=== PATIENT | female | born 2000 | race Caucasian/White ===

== ENCOUNTER 2023-07-03 06:00 | Inpatient (IN) | payer BC, OTHER ==
[2023-07-03] MEDS ORDERED: miSOPROStoL 200 MCG TAB PO PRN (06:05)
[2023-07-03] MEDS ORDERED: TERBUTALINE 1 MG/ML VIAL SQ PRN (06:05)
[2023-07-03] MEDS ORDERED: LIDOCAINE 0.5% (PF) 5 MG/ML (50 ML SDV) SQ PRN (06:05)
[2023-07-03] MEDS ORDERED: OXYTOCIN 10 UNIT/ML 1 ML VIAL IM PRN (06:05)
[2023-07-03] MEDS ORDERED: CARBOPROST TROMETHAMINE 250 MCG/ML 1 ML AMP IM PRN (06:05)
[2023-07-03] MEDS ORDERED: METHYLERGONOVINE 0.2 MG/ML 1 ML AMP IM PRN (06:05)
[2023-07-03] MEDS ORDERED: TRANEXAMIC 1,000 MG/100ML-NACL 1,000 MG in EMPTY BAG 1 BAG IV PRN (06:05)
[2023-07-03] MEDS ORDERED: OXYTOCIN 30 UNITS/500 ML NS 30 UNIT in SALINE 1 500ML.BAG IV SCH (06:15)
[2023-07-03] MEDS ORDERED: LACTATED RINGERS 1,000 ML IV SCH (06:15)
[2023-07-03] MEDS: LACTATED RINGERS 1,000 ML IV SCH ×3 (06:25→20:06)
[2023-07-03 06:27] LABS: Glucose,Whole Blood 113 mg/dL (70-110)
[2023-07-03 06:39] LABS: HGB 13.5 gm/dL (11.4-16.0); MCH 31.8 pg (25.0-35.0); MCHC 34.6 g/dL (31.0-37.0); Mean Platelet Volume 9.2; Platelet Count 180 k/uL (150-450); RBC 4.24 m/uL (3.80-5.40); RDW 12.6 % (11.5-15.5); WBC 11.1 k/uL (3.8-10.6)
[2023-07-03] MEDS ORDERED: NALBUPHINE 10 MG/ML (10 ML MDV) IV PRN (09:17)
--- NOTE | 2023-07-03 09:25 | P.HPOB ---
History of Present Illness H&P Date: 07/03/23 Chief Complaint: Medical induction of labor Ms. Helms is a 23 year old at 39 weeks and 1 day with EDC of 07/09/2023 (by 8 week ultrasound) who presents to labor and delivery for medical induction of labor for A2GDM. Maternal medicine has been following her daily blood glucose levels and has her on a regimen of 10 units of Novolin N qAM and 28 units Novolin N qHS. On recent growth ultrasound at 32 weeks the fetus measured in the 63%ile for gestational age. Maternal work-up: blood type A positive, antibody screen negative, rubella immune, VDRL non-reactive, HBsAg negative, HIV negative, gonorrhea negative, chlamydia negative, GBS negative, 1 hour GTT >200. TDap administered on 04/18/2023. Past medical history: Polycystic ovarian syndrome Past surgical history: Denies Past Medical History Past Medical History: No Reported History History of Any Multi-Drug Resistant Organisms: None Reported Past Surgical History: No Surgical Hx Reported Past Anesthesia/Blood Transfusion Reactions: No Reported Reaction Past Psychological History: No Psychological Hx Reported Smoking Status: Never smoker Past Drug Use History: None Reported - Past Family History Mother Family Medical History: No Reported History Medications and Allergies Home Medications Medication Instructions Recorded Confirmed Type Insulin NPH Human Isophane 30 units IM ONCE 07/03/23 07/03/23 History [Novolin N] Vit No.179/Iron/Folic 1 tab PO ONCE 07/03/23 07/03/23 History [ Tablet] Allergies Allergy/AdvReac Type Severity Reaction Status Date / Time No Known Allergies Allergy Verified 07/03/23 06:02 Exam Vital Signs Temp Pulse Resp BP 07/03/23 06:01 97.1 F L 90 17 145/86 Intake and Output 07/02/23 07/03/23 07/03/23 22:59 06:59 14:59 Other: Weight 117.934 kg Focused physical exam is performed. This is an obese in no apparent distress. Breathing is non-labored. Abdomen is gravid and non-tender. Cervical exam is closed, long, and high. Cooks catheter is placed with 60cc in each balloon. Extremities are non-tender and non-edematous. heart tones are reactive and reassuring on NST. Tocometer is not graphing any contractions. Results Result Diagrams: 07/03/23 06:24 Abnormal Lab Results - Last 24 Hours (Table) 07/03/23 07/03/23 Range/Units 06:24 06:24 WBC 11.1 H (3.8-10.6) k/uL POC Glucose (mg/dL) 113 H (70-110) mg/dL Assessment and Plan Assessment: 23 year old at 39 weeks and 1 day presenting for medical induction of labor for A2GDM on insulin Plan: Admit, blood glucose levels q4 in latent labor and q2 in active labor, IV nubain prn, mIVF, NPO, continuous EFM and toco. Close monitoring of patient.
[2023-07-03 09:30] LABS: Lymphocytes # (M) 1.89 k/uL (1.0-4.8); Neutrophils # (M) 8.21 k/uL (1.3-7.7); Neutrophils % (M) 74 %; Nucleated Red Blood Cells 0 /100 WBC (0-0); Total Cells Counted 100
[2023-07-03 10:09] LABS: Glucose,Whole Blood 101 mg/dL (70-110)
[2023-07-03 15:27] LABS: Glucose,Whole Blood 95 mg/dL (70-110)
[2023-07-03 18:39] LABS: Glucose,Whole Blood 89 mg/dL (70-110)
[2023-07-03 21:21] LABS: Glucose,Whole Blood 85 mg/dL (70-110)
[2023-07-04 01:20] LABS: Glucose,Whole Blood 94 mg/dL (70-110)
[2023-07-04] MEDS ORDERED: SODIUM CHLORIDE 0.9% 250 ML BAG ONE (01:34)
[2023-07-04] MEDS ORDERED: fentaNYL (PF) 50 MCG/ML 5 ML AMP ONE (01:34)
[2023-07-04] MEDS ORDERED: ROPIVACAINE 5 MG/ML 30 ML VIAL ONE (01:34)
[2023-07-04] MEDS: LACTATED RINGERS 1,000 ML IV SCH ×4 (02:23→18:30)
[2023-07-04 04:19] LABS: Glucose,Whole Blood 101 mg/dL (70-110)
[2023-07-04] MEDS ORDERED: CITRIC ACID-SODIUM CITRATE 15 ML CUP PO ONE (04:20)
[2023-07-04] MEDS ORDERED: AZITHROMYCIN 500 MG in SODIUM CHLORIDE 0.9% 250 ML IVPB STA (04:22)
[2023-07-04] MEDS ORDERED: ONDANSETRON 4 MG/2 ML VIAL ONE (04:54)
[2023-07-04] MEDS ORDERED: fentaNYL (PF) 50 MCG/ML 2 ML AMP ONE (04:54)
[2023-07-04] MEDS ORDERED: LIDOCAINE 2% INJ 20 MG/ML (2 ML VIAL) ONE (04:54)
[2023-07-04] MEDS ORDERED: OXYTOCIN 30 UNITS/500 ML NS BAG IV ONE (04:54)
[2023-07-04] MEDS ORDERED: MORPHINE SULFATE (PF) 0.3 MG/0.3 ML SYR ONE (04:54)
--- NOTE | 2023-07-04 05:58 | P.OP ---
Date of Procedure: 07/04/23 Preoperative Diagnosis: 1. Term IUP at 39 weeks and 2 days 2. Failure to progress 3. Persistent Category II Heart Tones Remote from Delivery 4. Gestational Diabetes on Insulin Postoperative Diagnosis: Same Procedure(s) Performed: Primary Lower Transverse Section Implants: None Anesthesia: epidural Surgeon: Jo Arana Vocational Rehabilitation Technician #1: Ayesha Harp Estimated Blood Loss (ml): 420 IV fluids (ml): 500 Urine output (ml): 200 (dark yellow) Pathology: none sent Condition: stable Indications for Procedure: This is a 23 year old at 39 weeks and 2 days being medically induced for gestational diabetes on insulin. She was followed by maternal medicine this , who had her on a regimen of 10 units of Novolin N qAM and 28 units of Novolin N qHS. The patient had been ruptured for approximately 12 hours with no cervical dilation after removal of cooks catheter despite AROM and pitocin per protocol. After the patient received an epidural, the fetus began to have repetitive late decelerations. Category II FHT managed following algorithm including initiation of position changes and fluid boluses. With the persistent presence of intermittent late decelerations, a patient-centered huddle was held and the need for an expedited deliver was discussed with the patient. It is our clinical recommendation to proceed with the delivery and after questions were answered to the patient agrees to proceed with the recommended plan. The risks, benefits, and alternatives to section were discussed with the patient including risk of bleeding, infection, damage to surrounding structures including bladder/bowels/ureters, and post-operative VTE. The patient understands these risks and desires to proceed with section. Operative Findings: Viable male infant with apgars of 9/9 at 1 and 5 minutes respectively. weighed 8 pounds and 8 ounces (3850 grams). Colorless amniotic fluid noted. Normal uterus, bilateral fallopian tubes and ovaries. Description of Procedure: The patient was taken to the operating room where spinal anesthesia was found to be adequate. 2 grams of Ancef and 500mg of Azithromycin were given for infection prophylaxis. Vaginal prep was performed prior to the surgery. She was prepared and draped in the dorsal supine position with a leftward tilt. A Pfannenstiel skin incision was made with the scalpel. The incision was carried down to the fascia. The fascia was incised and extended laterally with Loja scissors. The superior aspect of the fascia was grasped with Charbel clamps. The underlying rectus muscle was dissected off sharply with Loja scissors. In a similar fashion, the inferior aspect of the fascia was elevated with Charbel clamps and the rectus muscle and pyramidalis were dissected off. Excellent hemostasis was achieved with the bovie. The rectus muscle was in the midline down to the level of the pubic symphysis. Pre-peritoneal fatty tissue was bluntly dissected to expose the peritoneum. The peritoneum was found to be free of adherent bowel and entered sharply with Loja scissors. The peritoneal incision was extended superiorly and inferiorly to the bladder reflection with good visualization of the bladder. The bladder blade was inserted and vesicouterine peritoneum was identified. Intraabdominal survey revealed scant, clear peritonea l fluid and the thinned-out lower uterine segment. The vesicouterine peritoneum was opened with scissors and the bladder flap was developed. The bladder blade was repositioned to keep the bladder out of the operative field. The lower uterine segment was incised with a scalpel. Clear amniotic fluid was noted. The uterine incision was extended bluntly with lateral and upward traction. The fetus was in left occiput transverse position. The head was elevated out of the pelvis with special attention paid to avoid using the uterine incision as a fulcrum. Gentle fundal pressure was applied once the head was brought into the incision. The infant was delivered with no difficulty. The mouth and nose were suctioned with a bulb. The cord was clamped and cut. was noted to be spontaneously crying. The infant was handed off to the internal sales engineer. IV oxytocin was initiated to facilitate uterine contractions. The placenta was delivered intact with manual massage of uterine fundus. The uterus was then exteriorized and the inside of the uterus was gently wiped with a lap sponge to assure complete removal of placental membranes. The uterine incision was closed with a 0-Vicryl suture in a running locked fashion. A second imbricating layer of 0- Vicryl was placed along the incision. Additional figure of eight sutures with 0- Vicryl were placed along the incision for hemostasis. The ovaries and tubes were found to be normal. The uterus, tubes, and ovaries were then gently returned to the abdominal cavity. The blood clots and fluid were wiped out of the abdomen and pelvis with moist laparotomy sponges. The pelvis was copiously suction irrigated.The uterine incision was reinspected and excellent hemostasis was noted. The fascial layer was closed with a 0-Vicryl suture. The subcutaneous tissue was reapproximated with 2-0 Plain Gut. The skin was closed with dl. The patient tolerated the procedure well. All the counts were correct times two. The patient was taken to the recovery room in a stable condition.
[2023-07-04] MEDS ORDERED: ONDANSETRON 4 MG/2 ML VIAL IVP PRN (06:41)
[2023-07-04] MEDS ORDERED: NALBUPHINE 10 MG/ML (10 ML MDV) IV PRN (06:41)
[2023-07-04] MEDS ORDERED: NALOXONE 0.4 MG/ML 1 ML VIAL IV PRN (06:41)
--- NOTE | 2023-07-04 06:43 | P.ANPRN ---
Procedure Note - Anesthesia - Epidural/Spinal Epidural Time Out Performed: Yes Location of Patient: OR Indication: Acute Post-Operative Pain, Requested by Surgeon Preparation: Sterile Prep Position: Supine Catheter: Indwelling Blood Aspirated: No Pain Paresthesia on Injection Noted: No Events: Uneventful and Well Tolerated (3 mg of preservative-free morphine injected into the epidural catheter at the end of the )
[2023-07-04] MEDS ORDERED: diphenhydrAMINE 50 MG/ML 1 ML VIAL IVP PRN ×2 (10:54)
[2023-07-04] MEDS ORDERED: ZOLPIDEM 5 MG TAB PO PRN (10:54)
[2023-07-04] MEDS ORDERED: diphenhydrAMINE 50 MG CAP PO PRN (10:54)
[2023-07-04] MEDS ORDERED: METOCLOPRAMIDE 5 MG/ML 2 ML VIAL IVP PRN (10:54)
[2023-07-04] MEDS ORDERED: diphenhydrAMINE 25 MG CAP PO PRN (10:54)
[2023-07-04] MEDS: KETOROLAC 15 MG/ML 1 ML VIAL IVP SCH ×2 (11:02→18:18)
[2023-07-04] MEDS: ACETAMINOPHEN TAB 500 MG TAB PO SCH ×2 (13:59→21:11)
[2023-07-04] MEDS ORDERED: KETOROLAC 15 MG/ML 1 ML VIAL IVP SCH (18:00)
[2023-07-04] MEDS: SENNOSIDES-DOCUSATE SODIUM 1 EACH TAB PO SCH (21:12)
[2023-07-05] MEDS: IBUPROFEN 600 MG TAB PO SCH ×5 (02:20→22:20)
[2023-07-05] MEDS: LACTATED RINGERS 1,000 ML IV SCH ×4 (03:52→20:03)
[2023-07-05] MEDS: ACETAMINOPHEN TAB 500 MG TAB PO SCH ×4 (04:30→20:01)
[2023-07-05 05:09] LABS: HCT 36.2 % (34.0-46.0); HGB 12.4 gm/dL (11.4-16.0); MCH 32.3 pg (25.0-35.0); MCHC 34.3 g/dL (31.0-37.0); MCV 94.4 fL (80.0-100.0); Mean Platelet Volume 9.1; Platelet Count 151 k/uL (150-450); RBC 3.83 m/uL (3.80-5.40); RDW 12.9 % (11.5-15.5); WBC 13.8 k/uL (3.8-10.6)
[2023-07-05 07:25] LABS: Lymphocytes # (M) 1.24 k/uL (1.0-4.8); Monocytes # (M) 1.79 k/uL (0-1.0); Neutrophils # (M) 10.76 k/uL (1.3-7.7); Neutrophils % (M) 78 %; Nucleated Red Blood Cells 0 /100 WBC (0-0); Total Cells Counted 100
[2023-07-05 07:27] LABS: RBC Morphology Normal
--- NOTE | 2023-07-05 08:14 | P.PNOBGPC ---
Subjective - Subjective Principal diagnosis: s/p primary section for failure to progress and persistent nrFHTs Interval history: The patient is doing well this morning and had no acute events overnight. She has no complaints this morning. She reports minimal lochia, passing flatus, voi ding without difficulty, ambulating, and eating/drinking without nausea or vomiting. She is her infant without difficulty. She denies chest pain, shortness of breathing, fevers, or chills overnight. She denies pain or swelling in the legs. Patient reports: Reports appetite normal, Reports voiding normally, Reports pain well controlled, Reports ambulating normally [place]: doing well, nursing well Objective - Vital Signs Latest vital signs: Vital Signs Temp Pulse Resp BP Pulse Ox 07/04/23 23:32 98.4 F 79 16 120/72 99 07/04/23 19:15 98.7 F 92 15 123/72 98 07/04/23 15:39 97.9 F 85 18 110/70 97 07/04/23 12:00 98.6 F 81 16 108/64 97 07/04/23 08:28 16 07/04/23 08:20 77 16 130/61 99 Intake and Output 07/04/23 07/05/23 07/05/23 22:59 06:59 14:59 Intake Total 480 Output Total 500 Balance 480 -500 Intake: Oral 480 Output: Urine 500 Other: Voiding Method Toilet Toilet # Voids 1 1 - Exam Extremities: Present: normal Abdomen: Present: normal appearance, soft Incision: Present: normal, dry, intact Uterus: Present: normal, firm - Labs Labs: Abnormal Lab Results - Last 24 Hours (Table) 07/05/23 Range/Units 03:39 WBC 13.8 H (3.8-10.6) k/uL Neutrophils # (Manual) 10.76 H (1.3-7.7) k/uL Monocytes # (Manual) 1.79 H (0-1.0) k/uL Assessment and Plan Assessment: 23 year old now POD#1 s/p primary section 2/2 failure to progress and persistent category II heart tracing Plan: 1. Postoperative. Patient meeting all postoperative milestones appropriately. 2. Gestational diabetes on insulin. BS wnl. Needs 2 hour GTT (75g) at 6 weeks . 3. Viable male infant. At bedside, consented for circumcision today. Dispo: Anticipate discharge home tomorrow morning.
[2023-07-05] MEDS: SENNOSIDES-DOCUSATE SODIUM 1 EACH TAB PO SCH ×2 (08:20→20:04)
--- NOTE | 2023-07-05 09:41 | P.PN ---
Progress Note - Text Progress Note Date: 07/05/23 (7247) Anesthesia Postop day 1 Subjective: Status Post section with Duramorph. Patient seen and examined. Doing well without complaint. VAS 0. No nausea vomiting or pruritus. Afebrile. Gross lower extremity strength intact. Without apparent anesthetic complications. Objective: Vital signs reviewed Heart: Regular Rate Lungs: Good chest excursion Abdomen: Appears nondistended Assessment: Status post with Duramorph postop day 1 Plan: Continue current care with your medical management. Anticipated and the Duramorph section around time today. You may see increased pain needs around this time.
[2023-07-05] MEDS: KETOROLAC 15 MG/ML 1 ML VIAL IVP SCH (20:04)
[2023-07-06] MEDS: ACETAMINOPHEN TAB 500 MG TAB PO SCH ×2 (07:33→10:04)
[2023-07-06] MEDS: IBUPROFEN 600 MG TAB PO SCH (07:51)
--- NOTE | 2023-07-06 08:57 | P.DS ---
Providers Date of admission: 07/03/23 06:00 Expected date of discharge: 07/06/23 Attending physician: Jo Arana MD Primary care physician: Stated None Hospital Course: This is a 23 year old now POD#2 s/p primary section secondary to failure to progress and persistent category II heart tracing remote from delivery. The patient is doing well this morning and had no acute events overnight. She has no complaints this morning. She reports minimal lochia, passing flatus, voiding without difficulty, ambulating, and eating/drinking without nausea or vomiting. Infant doing well at bedside, s/p circumcision. She denies chest pain, shortness of breathing, fevers, or chills overnight. She denies pain or swelling in the legs. Postoperative restrictions are reviewed with the patient including pelvic rest for 6 weeks, no lifting heavier than 15 pounds for 6 weeks. The patient is encouraged to call the office if she experiences any heavy bleeding, foul-smelling discharge, breast complaints, or any if she has any other concerns. She will follow up in the office in 2 weeks for postoperative exam. All questions are answered. Assessment: 23 year old now POD#2 s/p 1LTCS 2/2 FTP and persistent Cat II FHTs remote from delivery Patient Condition at Discharge: Good Plan - Discharge Summary Discharge Rx Participant: No New Discharge Prescriptions: New Ibuprofen [Motrin] 600 mg PO Q6HR PRN #30 tab PRN Reason: Mild Pain (Scale 1 To 3) Acetaminophen Tab [Tylenol] 650 mg PO Q6H PRN #30 tab PRN Reason: Mild Pain (Scale 1 To 3) No Action Insulin NPH Human Isophane [Novolin N] 30 units IM ONCE Vit No.179/Iron/Folic [ Tablet] 1 tab PO ONCE Discharge Medication List Insulin NPH Human Isophane [Novolin N] 30 units IM ONCE 07/03/23 [History] Vit No.179/Iron/Folic [ Tablet] 1 tab PO ONCE 07/03/23 [History] Acetaminophen Tab [Tylenol] 650 mg PO Q6H PRN #30 tab 07/06/23 [Rx] Ibuprofen [Motrin] 600 mg PO Q6HR PRN #30 tab 07/06/23 [Rx] Follow up Appointment(s)/Referral(s): Jo Arana MD [STAFF PHYSICIAN] - 2 Weeks Activity/Diet/Wound Care/Special Instructions: Instructions 1. Do not begin any exercise program for 3 weeks. 2. Do not resume sexual relations for 6 weeks or longer if uncomfortable. 3. You may take tub baths or showers at any time. 4. You may use tampons if desired after 6 weeks. 5. Keep any areas repaired with stitches clean and dry. 6. If you are not nursing, wear a good fitting, supportive bra during the day and limit fluid intake for at least 1 week to prevent breast engorgement. 7. Call the office, , within the next week to make appointment for your 6 week checkup if it has not already been made. 8. Report any of the following occurrences to the doctor promptly: a. Heavy, excessive bleeding b. Chills, fever c. Burning or frequency of urination d. Pain or redness and breasts if nursing e. Increasing pain or swelling of vulva (stitches). In addition to the above instructions, the following additional should be followed: 1. No heavy lifting or straining (exercising) until after 6 week checkup. 2. Keep abdominal incision clean and dry: You may wear a dressing if more comfortable. 3. Make office appointment for 2 weeks after delivery date. Discharge Disposition: HOME SELF-CARE
[2023-07-06 09:09] VITALS: BP 112/53; PULSE 75; RESP 17; TEMP 98.1
[2023-07-06] MEDS: SENNOSIDES-DOCUSATE SODIUM 1 EACH TAB PO SCH (10:03)
== END 2023-07-06 11:05 | disposition home or self-care (01) | DRG 788 ==
LOC: 4FBP 06:00
PROVIDERS: ADMIT Obstetrics & Gynecology; ATTEND Obstetrics & Gynecology
PROC: 00HU33Z Insertion of Infusion Device into Spinal Canal, Percutaneous Approach (ICD-10-PCS; 2023-07-04)
PROC: 3E0R3BZ Introduction of Anesthetic Agent into Spinal Canal, Percutaneous Approach (ICD-10-PCS; 2023-07-04)
PROC: 10907ZC Drainage of Amniotic Fluid, Therapeutic from Products of Conception, Via Natural or Artificial Opening (ICD-10-PCS; 2023-07-04)
PROC: 0U7C7ZZ Dilation of Cervix, Via Natural or Artificial Opening (ICD-10-PCS; 2023-07-04)
PROC: 10D00Z1 Extraction of Products of Conception, Low, Open Approach (ICD-10-PCS; principal; 2023-07-04 05:00)
DX: O24.424 Gestational diabetes mellitus in childbirth, insulin controlled (principal); O62.2 Other uterine inertia; O76 Abnormality in fetal heart rate and rhythm complicating labor and delivery; O99.284 Endocrine, nutritional and metabolic diseases complicating childbirth; E28.2 Polycystic ovarian syndrome; Z37.0 Single live birth; Z3A.39 39 weeks gestation of pregnancy; Z79.4 Long term (current) use of insulin
CPT/HCPCS: 85025; 86850; 86900; 86901